=== PATIENT | female | born 1945 | race Caucasian/White ===

== ENCOUNTER 2018-10-03 13:58 | Emergency (ER) | payer MEDICARE ==
[2018-10-03] MEDS ORDERED: HYDROmorphone 0.5 MG/0.5 ML Syringe IVPUSH ONE ×2 (14:25→17:08)
[2018-10-03 15:19] VITALS: BP 139/82
[2018-10-03] MEDS ORDERED: Propofol 200 MG/20 ML SDV ONE (15:21)
--- NOTE | 2018-10-03 15:41 | EDM.PDOC ---
ED HPI GENERAL MEDICAL PROBLEM - General Chief Complaint: Lower Extremity Injury/Pain Stated Complaint: FALL Time Seen by Provider: 10/03/18 14:10 Source of Information: Reports: Patient History Limitations: Reports: No Limitations - History of Present Illness INITIAL COMMENTS - FREE TEXT/NARRATIVE: PT WAS PUTTING A SIGN UP AT A PROPERTY AND SHE SLIPPED AND INJURED HER RT LEG AND FRACTURED HER RT WRIST. sHE HAS SWELLING AND DEFORMITY OF THE WRIST. Onset: Today, Sudden Duration: Hour(s): Location: Reports: Upper Extremity, Right, Lower Extremity, Right Associated Symptoms: Reports: No Other Symptoms Right Wrist Pain Score (Numeric/FACES): 8 Right Lower Leg Pain Score (Numeric/FACES): 6 - Related Data Allergies Allergy/AdvReac Type Severity Reaction Status Date / Time Penicillins Allergy Hives Verified 10/03/18 14:11 Sulfa (Sulfonamide Allergy Hives Verified 10/03/18 14:11 Antibiotics) Home Meds: Home Meds Calcium Carb & Citrate/Vit D3 [Calcium + Vitamin D3 Caplet] 1 each PO DAILY 07/26 [History] Folic Acid 2 mg PO DAILY 05/16/14 [History] Methotrexate 0.6 ml SQ SA 05/16/14 [History] predniSONE [Prednisone] 2.5 mg PO DAILY 10/03/18 [History] 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: Musculoskeletal History: Reports: RA Oncologic (Cancer) History: Reports: Malignant Melanoma Dermatologic History: Reports: Melanoma Other Dermatologic History: left forearm Social & Family History - Tobacco Use Smoking Status *Q: Never Smoker Second Hand Smoke Exposure: No - Caffeine Use Caffeine Use: Reports: Coffee Other Caffeine Use: 6 cups coffee per day - Alcohol Use Days Per Week of Alcohol Use: 3 Number of Drinks Per Day: 1 Total Drinks Per Week: 3 - Recreational Drug Use Recreational Drug Use: No Review of Systems - Review of Systems Review Of Systems: See Below Constitutional: Reports: No Symptoms Eyes: Reports: No Symptoms Ears: Reports: No Symptoms Nose: Reports: No Symptoms Mouth/Throat: Reports: No Symptoms Respiratory: Reports: No Symptoms Cardiovascular: Reports: No Symptoms GI/Abdominal: Reports: No Symptoms Musculoskeletal: Reports: Other ( PT FELL AND INJURED HER RT WRIST AND RT LOWER LEG. sHE STATES SHE IS NOT ABLE TO BEAR WEIGHT ON THE RT LEG. W) Skin: Reports: No Symptoms ED EXAM, GENERAL - Physical Exam Exam: See Below Free Text/Narrative:: PT ARRIVED WITH PAIN, SWELLING AND DEFORMITY OF THE RT WRIS. sHE IS NOT ABLE TO BEAR WEIGHT IN THE RT LEG. sHE APPEARS TO BE TENDER IN THWE RT CALF AND JUST BELOW THE KNEE. Exam Limited By: No Limitations General Appearance: Alert, Moderate Distress Ears: Normal TMs Nose: Normal Inspection Throat/Mouth: Normal Inspection Head: Atraumatic, Other (PT DID HIT HER HEAD BUT SHE HAS NO SWELLING OR TENDERNESS) Neck: Normal Inspection Respiratory/Chest: No Respiratory Distress Cardiovascular: Regular Rate, Rhythm GI/Abdominal: Soft, Non-Tender Rectal (Female) Exam: Deferred Back Exam: Normal Inspection Extremities: Other ( RT WRIST IS SWOLLEN AND DEFORMED, HER LEG IS TENDER IN THE CALF AREA. ) Neurological: Alert, Oriented, Normal Cognition Psychiatric: Normal Affect Course - Vital Signs Last Recorded V/S: Last Vital Signs Temp 35.1 C L 10/03/18 15:21 Pulse 82 10/03/18 15:08 Resp 20 10/03/18 14:12 BP 139/82 10/03/18 15:08 Pulse Ox 95 10/03/18 15:08 - Orders/Labs/Meds Meds: Medications Discontinued Medications Generic Name Dose Route Start Last Admin Trade Name Danielq PRN Reason Stop Dose Admin Hydromorphone HCl 0.5 mg 10/03/18 14:25 10/03/18 14:35 Dilaudid IVPUSH 10/03/18 14:26 0.5 mg ONETIME ONE Administration Hydromorphone HCl 0.5 mg 10/03/18 17:08 10/03/18 17:28 Dilaudid IVPUSH 10/03/18 17:09 0.5 mg ONETIME ONE Administration Propofol Confirm 10/03/18 15:21 Diprivan 20 Ml Administered 10/03/18 15:22 Dose 200 mg .ROUTE .STK-MED ONE - Re-Assessments/Exams Free Text/Narrative Re-Assessment/Exam: 10/03/18 16:04 PT HAS A IMPACTED FRACTURE OF THE RT WRIST WHICH WILL REQUIRE REDUCTION. hER TIB -FIB XRAY DID NOT SHOW A FRACTURE. XRAYS OF THE KNEE were questionabvle. A cat scan of the knee showed a tibial plateau fracture. Pt will be placed in knee imoblizer and Dr azul will follow her. 10/03/18 17:30 10/04/18 15:09 cat scn of the knee did reveal a fracture in the tibial; plateau area. Departure - Departure Time of Disposition: 17:32 Disposition: Home, Self-Care 01 Condition: Fair Clinical Impression: Tibial plateau fracture, Fracture of right wrist, Skin tear of right lower leg without complication - Discharge Information Instructions: Skin Tear Care, [id number], Tibial Fracture, Adult, Easy-to- Read, Wrist Fracture Treated With Immobilization, [id number] Referrals: Dionicio Felipe MD [Primary Care Provider] - Forms: ED Department Discharge Care Plan Goals: Dr Azul will follow and direct her care, knee imobilzer, percocet 5/325 q6h prn for pain
--- NOTE | 2018-10-03 15:53 | CRLCR ---
Indication: Fall Technique: Three views of the right wrist Comparison: None available Findings/Impression: Bones: An angulated and apparently impacted fracture of the distal radial metadiaphysis and an ulnar styloid fracture. The carpus apparently remains in articulation with the distal radial articular surface, however the lateral view is limited and further evaluation with better positioning is recommended. Joint spaces: Unremarkable. Soft tissues: Soft tissue swelling. Dictated by Aguilar Saravia MD @ 10/03/2018 3:52:29 PM Dictated by: Aguilar Saravia MD @ 10/03/2018 15:52:35 (Electronically Signed)
--- NOTE | 2018-10-03 15:58 | CRLCR ---
Indication: Fall Technique: Three views of the right tibia and fibula. Comparison: None available Findings/Impression: Bones: A depressed fracture deformity of the lateral tibial plateau, of unclear chronicity. Correlate with additional views. No dislocation. Joint spaces: Unremarkable. Soft tissues: Unremarkable. Dictated by Aguilar Saravia MD @ 10/03/2018 3:55:17 PM Dictated by: Aguilar Saravia MD @ 10/03/2018 15:55:39 (Electronically Signed)
--- NOTE | 2018-10-03 16:15 | CRLCR ---
Indication: Wrist fracture status post reduction and splinting Comparison: Wrist radiographs earlier same day. Technique: Two views of the right wrist. Findings: Previously noted fractures of the distal radius and ulnar styloid are again identified. Interval reduction of fracture with near anatomic alignment. No additional fractures identified. Overlying splint material limits evaluation of fine bony detail. Interval application of overlying splinting material. Impression: 1. Improved alignment of Colles fracture and ulnar styloid fracture after reduction and splint placement. Dictated by Bryce Lucio MD @ Oct 03 2018 4:09PM Signed by Dr. Bryce Lucio @ Oct 03 2018 4:13PM
--- NOTE | 2018-10-03 16:44 | CRLCR ---
Indication: Pain Technique: Three views of the right knee Comparison: A curb right tibia and fibula series from the same date Findings/Impression: Bones: A lateral tibial plateau depressed fracture deformity with up to 9 mm depression. No dislocation. Joint spaces: An apparent suprapatellar effusion. Soft tissues: Vascular calcification. Dictated by Aguilar Saravia MD @ 10/03/2018 4:42:17 PM Dictated by: Aguilar Saravia MD @ 10/03/2018 16:42:31 (Electronically Signed)
--- NOTE | 2018-10-03 17:52 | CRLCT ---
INDICATION: Fracture. TECHNIQUE: Noncontrast axial images. Sagittal and coronal reconstructions. 3D reformations. COMPARISON: Radiographs from 10/03/2018. FINDINGS: Large lipohemarthrosis. There is an acute, mildly comminuted intra-articular fracture of the lateral tibial plateau. On axial image 57, the fracture fragment measures approximately 2.9 cm in transverse dimension by 4.3 cm in AP dimension. The fracture fragment is depressed approximately 1.3 cm. The remainder of the visualized osseous structures are intact. IMPRESSION: Mildly comminuted intra-articular fracture involving the lateral tibial plateau, with up to 1.3 cm of depression of the fracture fragment. Please note that all CT scans at this facility use dose modulation, iterative reconstruction, and/or weight-based dosing when appropriate to reduce radiation dose to as low as reasonably achievable. Dictated by Robbie Romo MD @ Oct 04 2018 7:39AM Signed by Dr. Robbie Romo @ Oct 04 2018 7:39AM
--- NOTE | 2018-10-16 17:59 | OR ---
DATE OF PROCEDURE: 10/03/2018 PREOPERATIVE DIAGNOSIS: Displaced right distal radius fracture. POSTOPERATIVE DIAGNOSIS: Displaced right distal radius fracture. PROCEDURE: Closed reduction, right distal radius with manipulation. ANESTHESIA: Conscious sedation administered by [facility]. INDICATIONS: Alissa is a 73-year-old female who sustained a fall resulting in injuries to her right wrist and right knee. X-rays reveal a right tibial plateau fracture as well as a displaced right distal radius fracture. Now planned for closed reduction of the right wrist and application of splint until arrangements can be made for definitive treatment of both fractures. Risks, benefits, and potential complications were discussed with the patient and her . DESCRIPTION OF PROCEDURE: After adequate conscious sedation was obtained, right wrist was then manipulated, reducing the distal radius fracture. A well-padded sugar-tong fiberglass splint was then applied and molded over the fracture. Post-reduction x-rays were obtained revealing adequate reduction of the fracture. The patient tolerated the procedure well. There were no complications. She remained in the emergency room for recovery and arrangements were made for discharge and return for fracture fixation. Steve James MD /[id number]
== END 2018-10-03 18:12 | disposition home or self-care (01) ==
LOC: JP.ED 13:58
DX: S52.501A Unspecified fracture of the lower end of right radius, initial encounter for closed fracture (principal); S82.141A Displaced bicondylar fracture of right tibia, initial encounter for closed fracture; M06.9 Rheumatoid arthritis, unspecified; Z88.0 Allergy status to penicillin; Z88.2 Allergy status to sulfonamides; W01.0XXA Fall on same level from slipping, tripping and stumbling without subsequent striking against object, initial encounter
CPT/HCPCS: 25605; 73100; 73110; 73562; 73590; 73700; 99284; J1170; J2704

== ENCOUNTER 2018-10-07 05:36 | Observation (INO) | payer MEDICARE ==
[2018-10-07] MEDS ORDERED: Lactated Ringers 1,000 ML IV SCH (06:30)
[2018-10-07] MEDS ORDERED: Bupivacaine 0.5% 50 ML MDV ONE (06:52)
[2018-10-07] MEDS ORDERED: Clindamycin Phosphate 900 MG in Sodium Chloride 0.9% 100 ML IV ONE (07:00)
[2018-10-07] MEDS ORDERED: Midazolam 1 MG/ML 2 ML SDV ONE (07:34)
[2018-10-07] MEDS ORDERED: fentaNYL 250 MCG/5 ML SDV ONE (07:34)
[2018-10-07] MEDS ORDERED: Glycopyrrolate 0.2 MG/ML 5 ML MDV ONE (07:36)
[2018-10-07] MEDS ORDERED: Propofol 200 MG/20 ML SDV ONE (07:36)
[2018-10-07] MEDS ORDERED: Rocuronium 50 MG/5 ML Vial ONE (07:36)
[2018-10-07] MEDS ORDERED: Dexamethasone 4 MG/ML SDV ONE (07:36)
[2018-10-07] MEDS ORDERED: Ondansetron 4 MG/2 ML SDV ONE (07:36)
[2018-10-07] MEDS ORDERED: Neostigmine Methylsulfate 1 MG/ML 5 ML Syringe ONE (07:36)
--- NOTE | 2018-10-07 07:42 | PCM.HP ---
H&P History of Present Illness - General Date of Service: 10/07/18 Source of Information: Patient History Limitations: Reports: No Limitations - History of Present Illness Initial Comments - Free Text/Narative: 73 year old right hand dominant female sustained a slip and fall last resulting in a displaced right distal radius fracture and depressed lateral tibial plateau fracture. Right wrist was reduced and splinted in ED. Arrangements made for appropriate hardware to be brought in for fixation of the tibia over the weekend. Admitted for ORIF of right wrist and right lateral tibial plateau. Onset of Symptoms: Reports: Sudden Quality: Reports: Ache, Stabbing Associated Symptoms: Reports: No Other Symptoms Right Wrist Pain Score (Numeric/FACES): 5 Left Lower Leg Pain Score (Numeric/FACES): 5 - Related Data Allergies/Adverse Reactions: Allergies Allergy/AdvReac Type Severity Reaction Status Date / Time Penicillins Allergy Hives Verified 10/03/18 14:11 Sulfa (Sulfonamide Allergy Hives Verified 10/03/18 14:11 Antibiotics) Home Medications: Home Meds Calcium Carb & Citrate/Vit D3 [Calcium + Vitamin D3 Caplet] 1 each PO DAILY 07/26 [History] Folic Acid 2 mg PO DAILY 05/16/14 [History] Methotrexate 0.4 ml SQ SA 05/16/14 [History] predniSONE [Prednisone] 2.5 mg PO DAILY 10/03/18 [History] Lisinopril 10 mg PO DAILY 10/07/18 [History] Multivitamin [Daily Marty] 1 each PO DAILY 10/07/18 [History] Past Medical History HEENT History: Reports: Impaired Vision Cardiovascular History: Reports: Hypertension 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: Musculoskeletal History: Reports: RA Oncologic (Cancer) History: Reports: Malignant Melanoma Dermatologic History: Reports: Melanoma Other Dermatologic History: left forearm - Past Surgical History HEENT Surgical History: Reports: None Cardiovascular Surgical History: Reports: None Social & Family History - Tobacco Use Smoking Status *Q: Never Smoker Second Hand Smoke Exposure: No - Caffeine Use Caffeine Use: Reports: Coffee Other Caffeine Use: 6 cups coffee per day Caffeine Use Comment: 6 cups per day - Alcohol Use Days Per Week of Alcohol Use: 3 Number of Drinks Per Day: 1 Total Drinks Per Week: 3 Date of Last Drink: 09/23/18 Time of Last Drink: 21:00 - Recreational Drug Use Recreational Drug Use: No H&P Review of Systems - Review of Systems: Review Of Systems: ROS reveals no pertinent complaints other than HPI. Exam - Exam Exam: See Below - Vital Signs Vital Signs: Last Vital Signs Temp 36.2 C 10/07/18 06:09 Pulse 75 10/07/18 06:09 Resp 18 10/07/18 06:09 BP 117/66 10/07/18 06:09 Pulse Ox 95 10/07/18 06:09 Weight: 66.678 kg - Exam General: Alert, Oriented, 4 HEENT: PERRLA, Hearing Intact, Mucosa Moist & [place], Nares Patent, Normal Nasal Septum, Posterior Pharynx Clear, Conjunctiva Clear, EOMI, EACs Clear, TMs Clear Neck: Supple, Trachea Midline, 2 Lungs: Clear to Auscultation, Normal Respiratory Effort Cardiovascular: Regular Rate, Regular Rhythm GI/Abdominal Exam: Normal Bowel Sounds, Soft, Non-Tender, No Organomegaly, No Distention, No Abnormal Bruit, No Mass, Pelvis Stable (Female) Exam: Deferred Rectal (Female) Exam: Deferred Back Exam: Normal Inspection, Full Range of Motion, NT Peripheral Pulses: 2+: Radial (L), Radial (R), Dorsalis Pedis (L), Dorsalis Pedis (R) Skin: Warm, Dry, Intact Neurological: Cranial Nerves Intact, Reflexes Equal Bilateral Neuro Extensive - Mental Status: Alert, Oriented x3, Normal Mood/Affect, Normal Cognition Neuro Extensive - Motor, Sensory, Reflexes: CN II-XII Intact, Normal Gait, Normal Reflexes Psychiatric: Alert, Normal Affect, Normal Mood Physical Exam Comments:: right arm in sugar tong splint, mild swelling of fingers, sensation intact,cap refill good right leg in knee immobilizer, moderate swelling, distal sensation intact, no motor deficits - Patient Data Lab Results Last 24 hrs: Laboratory Results - last 24 hr 10/07/18 10/07/18 Range/Units 06:30 06:30 WBC 6.7 (4.5-11.0) K/uL RBC 3.82 (3.30-5.50) M/uL Hgb 11.5 L (12.0-15.0) g/dL Hct 37.4 (36.0-48.0) % MCV 98 (80-98) fL MCH 30 (27-31) pg MCHC 31 L (32-36) % Plt Count 244 (150-400) K/uL Sodium 141 (140-148) mmol/L Potassium 3.8 (3.6-5.2) mmol/L Chloride 104 (100-108) mmol/L Carbon Dioxide 27 (21-32) mmol/L Anion Gap 10.5 (5.0-14.0) mmol/L BUN 14 (7-18) mg/dL Creatinine 1.0 (0.6-1.0) mg/dL Est Cr Clr Drug Dosing 44.62 mL/min Estimated GFR (MDRD) 54 L (>60) Glucose 109 H (74-106) mg/dL Calcium 8.6 (8.5-10.1) mg/dL Result Diagrams: 10/07/18 06:30 10/07/18 06:30 - Problem List (1) Skin tear of right lower leg without complication SNOMED Code(s): 828634292 ICD Code: S81.811A - LACERATION W/O FOREIGN BODY, RIGHT LOWER LEG, INIT ENCNTR Status: Acute Current Visit: No Qualifiers: Encounter type: subsequent encounter Qualified Code(s): S81.811D - Laceration without foreign body, right lower leg, subsequent encounter (2) Tibial plateau fracture SNOMED Code(s): 608037650 ICD Code: S82.143A - DISPLACED BICONDYLAR FRACTURE OF UNSP TIBIA, INIT Status: Acute Current Visit: No Qualifiers: Encounter type: subsequent encounter Fracture type: closed Laterality: right (3) Distal radius fracture, right SNOMED Code(s): 213573321 ICD Code: S52.501A - UNSP FRACTURE OF THE LOWER END OF RIGHT RADIUS, INIT Status: Acute Current Visit: Yes Qualifiers: Encounter type: subsequent encounter Fracture type: closed Fracture morphology: Colles' Problem List Initiated/Reviewed/Updated: Yes Orders Last 24hrs: Active Orders 24 hr Category Date Time Status Communication Order [RC] ROUTINE Care 10/07/18 06:30 Active Fluoro Over 1Hr wo Rad [CR] Routine Exams 10/07/18 06:46 Ordered Lactated Ringers [Ringers, Lactated] 1,000 ml Med 10/07/18 06:30 Active IV ASDIRECTED Medication Orders Lactated Ringer's (Ringers, Lactated) 1,000 mls @ 75 mls/hr IV ASDIRECTED [facility] Last Admin: 10/07/18 06:09 Dose: 75 mls/hr
[2018-10-07] MEDS ORDERED: Ketamine 500 MG/5 ML MDV ONE (08:21)
[2018-10-07] MEDS ORDERED: Hydrocortisone Sodium Succinate 100 MG/2 ML SDV ONE (08:22)
[2018-10-07] MEDS ORDERED: Sodium Chloride 0.9% 10 ML ONE (08:22)
[2018-10-07] MEDS ORDERED: fentaNYL 100 MCG/2 ML SDV ONE (10:29)
[2018-10-07] MEDS ORDERED: Lactated Ringers 1,000 ML ONE (10:32)
[2018-10-07] MEDS ORDERED: Acetaminophen 325 MG Tab PO PRN (10:54)
[2018-10-07] MEDS ORDERED: Morphine 2 MG/ML Syringe IVPUSH PRN (11:09)
[2018-10-07] MEDS ORDERED: Metoclopramide 10 MG/2 ML SDV IV ONE (11:19)
[2018-10-07] MEDS ORDERED: Metoclopramide 10 MG/2 ML SDV ONE (11:19)
[2018-10-07] MEDS ORDERED: Morphine 2 MG/ML Syringe IV ONE (11:27)
[2018-10-07] MEDS: Acetaminophen/oxyCODONE 325-5 MG Tab PO PRN (12:42)
[2018-10-07] MEDS: Acetaminophen/HYDROcodone 325-5 MG Tab PO PRN ×2 (16:33→19:33)
[2018-10-07] MEDS: Sodium Chloride 0.9% 1,000 ML IV SCH (19:00)
[2018-10-08] MEDS: Sodium Chloride 0.9% 1,000 ML IV SCH (01:08)
--- NOTE | 2018-10-08 02:22 | OR ---
DATE OF PROCEDURE: 10/07/2018 PREOPERATIVE DIAGNOSES: 1. Displaced right distal radius fracture, extra-articular. 2. Depressed lateral tibial plateau fracture, right knee. POSTOPERATIVE DIAGNOSES: 1. Displaced right distal radius fracture, extra-articular. 2. Depressed lateral tibial plateau fracture, right knee. PROCEDURES: 1. Open reduction internal fixation, right distal radius, using a volar plate. 2. Open reduction internal fixation, right lateral tibial plateau, with bone grafting. ANESTHESIA: General. INDICATIONS: Alissa is a very pleasant 73-year-old female, who sustained a fall last week on when she slipped on a wet step. This resulted in a displaced right distal radius fracture and a depressed lateral tibial plateau fracture. She was evaluated in the emergency room on the day of injury. She underwent closed reduction of the distal radius with sedation in the emergency department. I had a discussion with her regarding the depressed tibial plateau fracture. This hospital does not have the hardware available to proceed with that today and would have to be brought in, which may take a day or 2. I did offer her the possibility of being transferred for treatment to [place] or to [place]. She opted to stay until the hardware was available and arrangements could be made for treatment here. She is now admitted for surgical intervention. DESCRIPTION OF PROCEDURE: After adequate anesthesia was obtained, the right arm had a tourniquet placed about the upper arm. The previous splint was removed. The arm was then prepped and draped in a sterile fashion. The arm was exsanguinated and the tourniquet inflated to 200 mmHg pressure. A volar incision was made radial to the palmaris longus. This was carried down through the subcutaneous tissues. Blunt dissection was then carried down between the flexors to the quadratus and the fracture site. The fracture was identified. The quadratus was cleared from the fracture. The fracture was reduced, and the volar plate was then secured with 3.5 mm screws proximally and distal locking screws. The position of the reduction and hardware placement was evaluated with fluoroscopy. Good purchase was obtained with the screws. The wrist was then irrigated and closed with 2-0 Vicryl and Steri-Strips. A dressing was applied, including Xeroform gauze, sterile 4 x 4's, and cast padding. Attention was then turned to the right knee. The drapes were removed from the right arm. The right leg was then prepped and draped in a sterile fashion. A tourniquet was placed about the right upper thigh. After draping, the leg was exsanguinated and the tourniquet inflated to 300 mmHg pressure. A longitudinal incision was made over the anterior aspect of the knee from the superior portion of the patella distally below the tibial tubercle. This was carried through the subcutaneous tissues. The fascia in the anterior compartment was released, and the muscle was stripped periosteally over the fracture site. The incision was carried up into the joint adjacent to the patellar tendon, and the fracture hemarthrosis was evacuated. Dissection was carried out underneath the lateral meniscus along the joint line. An osteotome was used to open the longitudinal fracture anteriorly, allowing access to the depressed articular fragment. This was loosened from its impacted position with the osteotome and elevated. The level of the elevation and yarsanism of joint line were confirmed both visually and with fluoroscopy. The void in the cancellous bone was filled with crushed cancellous chips, and the cortical fragment was then reduced over this. Final position was again confirmed using fluoroscopy. A precontoured L-shaped lateral buttress plate was selected. This did not sit adequately over the fracture site and was quite prominent anteriorly. This was recontoured with plate benders and then secured to the lateral tibia. In order to obtain best fit along the proximal portion and avoid a very prominent anterior edge, it was angled slightly posteriorly along the shaft in the distal portion. This was initially secured provisionally to the shaft in the sliding screw position. Additional fixation was then obtained with a cortical screw just distal to the sliding screw, maintaining correct position along the joint line. The screws were then tightened down, compressing the fracture, and additional fixation was obtained with proximal locking screws beneath the joint line. Position was confirmed using fluoroscopy. Further fixation was obtained with cortical screws distally. Final position was confirmed using AP and lateral images. The wounds were then irrigated. The fascia was closed with #1 Vicryl. The skin was closed with 2-0 Vicryl and a running 3-0 Monocryl. Steri-Strips were applied. A sterile dressing was then placed, and the knee was placed into a T-scope brace locked in extension. Attention was returned to the right wrist, and a volar plaster splint was applied. The patient tolerated the procedure very well. There were no complications. She was taken from the operating room in a stable condition. Steve James MD /[id number]
[2018-10-08] MEDS: Acetaminophen/HYDROcodone 325-5 MG Tab PO PRN ×4 (02:38→13:51)
[2018-10-08] MEDS: Lisinopril 10 MG Tab PO SCH (09:14)
[2018-10-08] MEDS: predniSONE 5 MG Tab PO SCH (09:14)
[2018-10-08] MEDS: Acetaminophen/oxyCODONE 325-5 MG Tab PO PRN ×2 (12:42→17:53)
--- NOTE | 2018-10-08 13:34 | PCM.SURGPN ---
- General Info Date of Service: 10/08/18 Date of Surgery/Procedure: 10/07/18 POD#: 1 Post-Op Diagnosis: right lateral tibial plateau and right distal radius fractures Functional Status: Reports: Tolerating Diet, Urinating - Review of Systems General: Reports: No Symptoms HEENT: Reports: No Symptoms Pulmonary: Reports: No Symptoms Cardiovascular: Reports: No Symptoms Gastrointestinal: Reports: No Symptoms Genitourinary: Reports: No Symptoms Skin: Reports: No Symptoms Neurological: Reports: No Symptoms Psychiatric: Reports: No Symptoms - Patient Data Vitals - Most Recent: Last Vital Signs Temp 36.3 C 10/08/18 10:42 Pulse 88 10/08/18 10:42 Resp 18 10/08/18 10:42 BP 131/76 10/08/18 10:42 Pulse Ox 90 L 10/08/18 10:42 Weight - Most Recent: 66.678 kg I&O - Last 24 Hours: Intake & Output 10/07/18 10/08/18 10/08/18 22:59 06:59 14:59 Intake Total 816 250 Output Total 350 1400 Balance 816 -100 -1400 Med Orders - Current: Current Medications Acetaminophen (Tylenol) 650 mg PO Q4H PRN PRN Reason: Pain/Fever Hydrocodone Bitart/Acetaminophen ([place]arm[place] 325-5 Mg) 1 tab PO Q3H PRN PRN Reason: Pain (mild 1-3) Last Admin: 10/08/18 09:23 Dose: 1 tab Lactated Ringer's (Ringers, Lactated) 1,000 mls @ 75 mls/hr IV ASDIRECTED [facility] Last Admin: 10/07/18 06:09 Dose: 75 mls/hr Sodium Chloride (Normal Saline) 1,000 mls @ 125 mls/hr IV ASDIRECTED [facility] Last Admin: 10/08/18 01:08 Dose: 125 mls/hr Lisinopril (Prinivil) 10 mg PO DAILY [facility] Last Admin: 10/08/18 09:14 Dose: 10 mg Morphine Sulfate (Morphine) 1 mg IVPUSH Q1H PRN PRN Reason: Pain (severe 7-10) Oxycodone/Acetaminophen (Percocet 325-5 Mg) 0 tab PO Q6H PRN PRN Reason: Pain (severe 7-10) Last Admin: 10/08/18 12:42 Dose: 1 tab Prednisone (Prednisone) 2.5 mg PO DAILY [facility] Last Admin: 10/08/18 09:14 Dose: 2.5 mg Discontinued Medications Bupivacaine HCl (Marcaine 0.5%) Confirm Administered Dose 50 ml .ROUTE .STK-MED ONE Stop: 10/07/18 06:53 Last Admin: 10/07/18 10:30 Dose: 20 ml Dexamethasone (Dexamethasone) Confirm Administered Dose 4 mg .ROUTE .ST-MED ONE Stop: 10/07/18 07:37 Fentanyl (Sublimaze) Confirm Administered Dose 250 mcg .ROUTE .STK-MED ONE Stop: 10/07/18 07:35 Fentanyl (Sublimaze) Confirm Administered Dose 100 mcg .ROUTE .STK-MED ONE Stop: 10/07/18 10:30 Glycopyrrolate (Robinul) Confirm Administered Dose 1 mg .ROUTE .ST-MED ONE Stop: 10/07/18 07:37 Hydrocortisone Sodium Succinate (Solu-Cortef) Confirm Administered Dose 100 mg .ROUTE .[facility]-MED ONE Stop: 10/07/18 08:23 Clindamycin Phosphate 900 mg/ (Sodium Chloride) 106 mls @ 225 mls/hr IV ONETIME ONE Stop: 10/07/18 07:28 Last Admin: 10/07/18 07:43 Dose: 225 mls/hr Sodium Chloride (Normal Saline) Confirm Administered Dose 10 mls @ as directed .ROUTE .ST-MED ONE Stop: 10/07/18 08:23 Lactated Ringer's (Ringers, Lactated) Confirm Administered Dose 1,000 mls @ as directed .ROUTE .ST-MED ONE Stop: 10/07/18 10:33 Ketamine HCl (Ketalar) Confirm Administered Dose 500 mg .ROUTE .STK-MED ONE Stop: 10/07/18 08:22 Metoclopramide HCl (Reglan) Confirm Administered Dose 10 mg .ROUTE .ST-MED ONE Stop: 10/07/18 11:20 Last Admin: 10/07/18 17:49 Dose: Not Given Midazolam HCl (Versed 1 Mg/Ml) Confirm Administered Dose 2 mg .ROUTE .STK-MED ONE Stop: 10/07/18 07:35 Neostigmine Methylsulfate (Neostigmine) Confirm Administered Dose 5 mg .ROUTE .ST-MED ONE Stop: 10/07/18 07:37 Ondansetron HCl (Zofran) Confirm Administered Dose 4 mg .ROUTE .STK-MED ONE Stop: 10/07/18 07:37 Propofol (Diprivan 20 Ml) Confirm Administered Dose 200 mg .ROUTE .STK-MED ONE Stop: 10/07/18 07:37 Rocuronium [place] (Zemuron) Confirm Administered Dose 50 mg .ROUTE .STK-MED ONE Stop: 10/07/18 07:37 - Exam Wound/Incisions: Dressing Dry and Intact General: Alert, Oriented HEENT: Pupils Equal Neck: Supple Cardiovascular: Regular Rate, Regular Rhythm GI/Abdominal Exam: Normal Bowel Sounds, Soft, Non-Tender, No Organomegaly, No Distention, No Abnormal Bruit, No Mass, Pelvis Stable Skin: Warm, Dry, Intact Neurological: No New Focal Deficit Psy/Mental Status: Alert, Normal Affect, Normal Mood Physical Findings Comment:: mild to moderate swelling in fingers right hand, Minimal swelling of right foot/ leg - Problem List & Annotations (1) Skin tear of right lower leg without complication SNOMED Code(s): 266782877 Code(s): S81.811A - LACERATION W/O FOREIGN BODY, RIGHT LOWER LEG, INIT ENCNTR Status: Acute Current Visit: No Qualifiers: Encounter type: subsequent encounter Qualified Code(s): S81.811D - Laceration without foreign body, right lower leg, subsequent encounter (2) Distal radius fracture, right SNOMED Code(s): 378766260 Code(s): S52.501A - UNSP FRACTURE OF THE LOWER END OF RIGHT RADIUS, INIT Status: Acute Current Visit: Yes Qualifiers: Encounter type: subsequent encounter Fracture type: closed Fracture morphology: Colles' (3) Closed fracture of lateral portion of left tibial plateau SNOMED Code(s): 169527778 Code(s): S82.122A - DISP FX OF LATERAL CONDYLE OF LEFT TIBIA, INIT FOR CLOS FX Status: Acute Current Visit: Yes - Problem List Review Problem List Initiated/Reviewed/Updated: Yes - My Orders Last 24 Hours: Active Orders 24 hr Category Date Time Status Regular Diet [DIET] Diet 10/07/18 Dinner Active Lisinopril [Prinivil] Med 10/08/18 09:00 Active 10 mg PO DAILY predniSONE Med 10/08/18 09:00 Active 2.5 mg PO DAILY Convert IV to Saline Lock [OM.PC] Routine Oth 10/08/18 13:10 Ordered Medication Orders Acetaminophen (Tylenol) 650 mg PO Q4H PRN PRN Reason: Pain/Fever Hydrocodone Bitart/Acetaminophen ([place]armco 325-5 Mg) 1 tab PO Q3H PRN PRN Reason: Pain (mild 1-3) Last Admin: 10/08/18 09:23 Dose: 1 tab Admin: 10/08/18 06:11 Dose: 1 tab Admin: 10/08/18 02:38 Dose: 1 tab Admin: 10/07/18 19:33 Dose: 1 tab Admin: 10/07/18 16:33 Dose: 1 tab Lactated Ringer's (Ringers, Lactated) 1,000 mls @ 75 mls/hr IV ASDIRECTED [facility] Last Admin: 10/07/18 06:09 Dose: 75 mls/hr Sodium Chloride (Normal Saline) 1,000 mls @ 125 mls/hr IV ASDIRECTED [facility] Last Admin: 10/08/18 01:08 Dose: 125 mls/hr Infusion: 10/08/18 01:08 Dose: 125 mls/hr Admin: 10/07/18 19:00 Dose: 125 mls/hr Lisinopril (Prinivil) 10 mg PO DAILY [facility] Last Admin: 10/08/18 09:14 Dose: 10 mg Morphine Sulfate (Morphine) 1 mg IVPUSH Q1H PRN PRN Reason: Pain (severe 7-10) Oxycodone/Acetaminophen (Percocet 325-5 Mg) 0 tab PO Q6H PRN PRN Reason: Pain (severe 7-10) Last Admin: 10/08/18 12:42 Dose: 1 tab Admin: 10/07/18 12:42 Dose: 2 tab Prednisone (Prednisone) 2.5 mg PO DAILY [facility] Last Admin: 10/08/18 09:14 Dose: 2.5 mg - Assessment Assessment (Free Text/Narrative):: No complications post op, having difficulty with getting in/out of bed, requiring max assist, not independent with platform walker, increased pain with activity - Plan Plan (Free Text/Narrative):: Continue PT/OT for mobility, pain management, will change dressing and check incision right leg in AM, anticipate discharge tomorrow
[2018-10-08] MEDS ORDERED: Docusate Sodium 100 MG Cap PO PRN (18:30)
[2018-10-09] MEDS: Acetaminophen/oxyCODONE 325-5 MG Tab PO PRN ×2 (00:09→07:23)
[2018-10-09 07:17] VITALS: BP 125/91
[2018-10-09] MEDS: Lisinopril 10 MG Tab PO SCH (09:53)
[2018-10-09] MEDS: predniSONE 5 MG Tab PO SCH (09:53)
--- NOTE | 2018-10-16 12:17 | PCM.DCSUM1 ---
Discharge Summary - Hospital Course Free Text/Narrative:: 73 yr old female with history of fall last week resulting in right wrist and and right tibial plateau fractures. Admitted for ORIF of both fractures. Diagnosis: Stroke: No - Discharge Data Discharge Disposition: Home, W Home Health Agency 06 Condition: Good - Discharge Diagnosis/Problem(s) (1) Skin tear of right lower leg without complication SNOMED Code(s): 051664599 ICD Code: S81.811A - LACERATION W/O FOREIGN BODY, RIGHT LOWER LEG, INIT ENCNTR Status: Acute Qualifiers: Encounter type: subsequent encounter Qualified Code(s): S81.811D - Laceration without foreign body, right lower leg, subsequent encounter (2) Distal radius fracture, right SNOMED Code(s): 579050504 ICD Code: S52.501A - UNSP FRACTURE OF THE LOWER END OF RIGHT RADIUS, INIT Status: Acute Qualifiers: Encounter type: subsequent encounter Fracture type: closed Fracture morphology: Colles' (3) Closed fracture of lateral portion of left tibial plateau SNOMED Code(s): 778509833 ICD Code: S82.122A - DISP FX OF LATERAL CONDYLE OF LEFT TIBIA, INIT FOR CLOS FX Status: Acute - Patient Summary/Data Operative Procedure(s) Performed: ORIF right distal radius and right lateral tibial plateau Consults: Consultations 10/07/18 11:04 PT Evaluation and Treatment [CONS] Routine Please Evaluate and Treat. PT Reason for Consult: Ambulation Discharge Disposition: Home w Home Health Special Instructions: TTWB on right leg with platform walker, may wt bear on elbow and prox. forearm This query below is only for informational purposes and is not editable. 10/07/18 11:11 Consult to Occupational Therapy [OT Evaluation and Treatment] [CONS] Routine Please Evaluate and Treat. OT Reason for Consult: ADL's Pending Discharge: Yes Discharge Disposition: Home w Home Health Special Instructions: May wt bear on elbow and proximal forearm This query below is only for informational purposes and is not editable. Admission Diagnosis/Problem: Tibial plateau fracture, right 10/08/18 15:17 Consult to Occupational Therapy [OT Evaluation and Treatment] [CONS] Routine Please Evaluate and Treat. OT Reason for Consult: ADL's Pending Discharge: Yes Discharge Disposition: Home w Home Health Special Instructions: ADLs and adaptive devices This query below is only for informational purposes and is not editable. Admission Diagnosis/Problem: Tibial plateau fracture, right - Patient Instructions Diet: Usual Diet as Tolerated Activity: Apply Ice, Elevate Extremity Activity, Other: TTWB on right leg, WBAT on right elbow and forearm Driving: Do Not Drive Showering/Bathing: May Shower Showering/Bathing, Other: Keep right arm splint dry Notify Provider of: Fever, Increased Pain, Swelling and Redness, Drainage, Nausea and/or Vomiting - Discharge Plan *PRESCRIPTION DRUG MONITORING PROGRAM REVIEWED*: No *COPY OF PRESCRIPTION DRUG MONITORING REPORT IN PATIENT JOSE MARTIN: No Prescriptions/Med Rec: oxyCODONE HCl/Acetaminophen [Percocet 5-325 mg Tablet] 2 each PO Q6HR PRN #40 tablet PRN Reason: Pain Home Medications: Home Meds Calcium Carb & Citrate/Vit D3 [Calcium + Vitamin D3 Caplet] 1 each PO DAILY 07/26 [History] Folic Acid 2 mg PO DAILY 05/16/14 [History] Methotrexate 0.4 ml SQ SA 05/16/14 [History] predniSONE [Prednisone] 2.5 mg PO DAILY 10/03/18 [History] Lisinopril 10 mg PO DAILY 10/07/18 [History] Multivitamin [Daily Marty] 1 each PO DAILY 10/07/18 [History] oxyCODONE HCl/Acetaminophen [Percocet 5-325 mg Tablet] 2 each PO Q6HR PRN #40 tablet 10/09/18 [Rx] Acetaminophen [Tylenol Extra Strength] 1 - 2 tab PO Q4HR PRN 10/15/18 [History] Other Amb Orders: PT Evaluation and Treatment [CONS] Time Frame: 2 Days, Location: None Selected Oxygen Therapy Mode: Room Air Patient Handouts: Tibial Plateau Fracture Treated With Open Reduction, Cast or Splint Care, Adult Referrals: Steve James MD [Physician] - 10/15/18 2:45 pm (Please arrive 15 minutes early to register for your appointment.) - Discharge Summary/Plan Comment DC Time >30 min.: Yes - General Info Date of Service: 10/09/18 - Patient Data Vitals - Most Recent: Last Vital Signs Temp 36.1 C 10/09/18 07:15 Pulse 82 10/09/18 07:15 Resp 16 10/09/18 07:15 BP 125/91 H 10/09/18 09:53 Pulse Ox 94 L 10/09/18 07:15 Weight - Most Recent: 66.678 kg Med Orders - Current: Current Medications Discontinued Medications Acetaminophen (Tylenol) 650 mg PO Q4H PRN PRN Reason: Pain/Fever Hydrocodone Bitart/Acetaminophen ([place] 325-5 Mg) 1 tab PO Q3H PRN PRN Reason: Pain (mild 1-3) Last Admin: 10/08/18 13:51 Dose: 1 tab Bupivacaine HCl (Marcaine 0.5%) Confirm Administered Dose 50 ml .ROUTE .STK-MED ONE Stop: 10/07/18 06:53 Last Admin: 10/07/18 10:30 Dose: 20 ml Dexamethasone (Dexamethasone) Confirm Administered Dose 4 mg .ROUTE .STK-MED ONE Stop: 10/07/18 07:37 Docusate Sodium (Colace) 100 mg PO BID PRN PRN Reason: Constipation Last Admin: 10/08/18 20:44 Dose: 100 mg Fentanyl (Sublimaze) Confirm Administered Dose 250 mcg .ROUTE .STK-MED ONE Stop: 10/07/18 07:35 Fentanyl (Sublimaze) Confirm Administered Dose 100 mcg .ROUTE .STK-MED ONE Stop: 10/07/18 10:30 Glycopyrrolate (Robinul) Confirm Administered Dose 1 mg .ROUTE .STK-MED ONE Stop: 10/07/18 07:37 Hydrocortisone Sodium Succinate (Solu-Cortef) Confirm Administered Dose 100 mg .ROUTE .STK-MED ONE Stop: 10/07/18 08:23 Clindamycin Phosphate 900 mg/ (Sodium Chloride) 106 mls @ 225 mls/hr IV ONETIME ONE Stop: 10/07/18 07:28 Last Admin: 10/07/18 07:43 Dose: 225 mls/hr Lactated Ringer's (Ringers, Lactated) 1,000 mls @ 75 mls/hr IV ASDIRECTED [facility] Last Admin: 10/07/18 06:09 Dose: 75 mls/hr Sodium Chloride (Normal Saline) Confirm Administered Dose 10 mls @ as directed .ROUTE .STK-MED ONE Stop: 10/07/18 08:23 Lactated Ringer's (Ringers, Lactated) Confirm Administered Dose 1,000 mls @ as directed .ROUTE .STK-MED ONE Stop: 10/07/18 10:33 Sodium Chloride (Normal Saline) 1,000 mls @ 125 mls/hr IV ASDIRECTED [facility] Last Admin: 10/08/18 01:08 Dose: 125 mls/hr Ketamine HCl (Ketalar) Confirm Administered Dose 500 mg .ROUTE .STK-MED ONE Stop: 10/07/18 08:22 Lisinopril (Prinivil) 10 mg PO DAILY [facility] Last Admin: 10/09/18 09:53 Dose: 10 mg Metoclopramide HCl (Reglan) Confirm Administered Dose 10 mg .ROUTE .STK-MED ONE Stop: 10/07/18 11:20 Last Admin: 10/07/18 17:49 Dose: Not Given Metoclopramide HCl (Reglan) 10 mg IV .STK-MED ONE Stop: 10/07/18 11:20 Midazolam HCl (Versed 1 Mg/Ml) Confirm Administered Dose 2 mg .ROUTE .STK-MED ONE Stop: 10/07/18 07:35 Morphine Sulfate (Morphine) 1 mg IVPUSH Q1H PRN PRN Reason: Pain (severe 7-10) Morphine Sulfate (Morphine) 2 mg IV .STK-MED ONE Stop: 10/07/18 11:28 Neostigmine Methylsulfate (Neostigmine) Confirm Administered Dose 5 mg .ROUTE .STK-MED ONE Stop: 10/07/18 07:37 Ondansetron HCl (Zofran) Confirm Administered Dose 4 mg .ROUTE .STK-MED ONE Stop: 10/07/18 07:37 Oxycodone/Acetaminophen (Percocet 325-5 Mg) 0 tab PO Q6H PRN PRN Reason: Pain (severe 7-10) Last Admin: 10/09/18 07:23 Dose: 2 tab Prednisone (Prednisone) 2.5 mg PO DAILY [facility] Last Admin: 10/09/18 09:53 Dose: 2.5 mg Propofol (Diprivan 20 Ml) Confirm Administered Dose 200 mg .ROUTE .STK-MED ONE Stop: 10/07/18 07:37 Rocuronium [place] (Zemuron) Confirm Administered Dose 50 mg .ROUTE .STK-MED ONE Stop: 10/07/18 07:37
== END 2018-10-09 12:35 | disposition home health service (06) ==
LOC: JP.SDS 05:36 → JP.MS 10:54 → JP.SDS 10-08 15:23 → JP.MS 10-08 15:23
PROVIDERS: ADMIT Specialist; ATTEND Specialist
DX: S52.551A Other extraarticular fracture of lower end of right radius, initial encounter for closed fracture (principal); S82.121A Displaced fracture of lateral condyle of right tibia, initial encounter for closed fracture; I10 Essential (primary) hypertension; W01.0XXA Fall on same level from slipping, tripping and stumbling without subsequent striking against object, initial encounter; Z88.0 Allergy status to penicillin; Z88.2 Allergy status to sulfonamides; Z79.52 Long term (current) use of systemic steroids; Z79.899 Other long term (current) drug therapy
CPT/HCPCS: 25607; 27535; 36415; 76000; 80048; 85027; 97110; 97162; 97165; 97530; 97535; A9270; C1713; G0378; J1720; J2250; J2270; J2405; J2704; J2710; J2765; J3010; J3490; J7030; J7120; J1100

== ENCOUNTER 2021-08-05 09:31 | Day surgery (SDC) | payer MEDICARE ==
[2021-08-05] MEDS ORDERED: Sodium Chloride 0.9% 1,000 ML IV SCH (10:00)
[2021-08-05] MEDS ORDERED: Midazolam 1 MG/ML 2 ML SDV ONE (11:37)
[2021-08-05] MEDS ORDERED: Propofol 200 MG/20 ML SDV ONE (11:37)
[2021-08-05] MEDS ORDERED: fentaNYL 100 MCG/2 ML SDV ONE (11:37)
[2021-08-05 13:43] VITALS: PULSE 71
[2021-08-05 14:14] VITALS: BP 115/78
== END 2021-08-05 14:23 | disposition home or self-care (01) ==
LOC: JP.SDS 09:31
PROVIDERS: ATTEND Surgery
DX: K64.8 Other hemorrhoids (principal); K57.30 Diverticulosis of large intestine without perforation or abscess without bleeding; Z88.0 Allergy status to penicillin; Z88.2 Allergy status to sulfonamides
CPT/HCPCS: J2250; J2704; J3010

== ENCOUNTER 2024-05-26 16:30 | Emergency (ER) | payer MEDICARE ==
[2024-05-26] MEDS: Cyclobenzaprine 10 MG Tab PO ONE (18:23)
[2024-05-26] MEDS: Ketorolac 30 MG/ML SDV IM ONE (18:25)
[2024-05-26 19:27] VITALS: BP 126/79; PULSE 81
== END 2024-05-26 19:15 | disposition home or self-care (01) ==
LOC: JP.ED 16:30
DX: M54.50 Low back pain, unspecified (principal); Z88.0 Allergy status to penicillin; Z88.8 Allergy status to other drugs, medicaments and biological substances; Z88.2 Allergy status to sulfonamides; Z91.048 Other nonmedicinal substance allergy status
CPT/HCPCS: 96372; 99283; A9270; J1885